=== PATIENT | male | born 1990 | race Caucasian/White ===

== ENCOUNTER 2017-02-27 17:45 | Emergency (ER) | payer MEDICAID ==
[~2017-02-27] VITALS: Ht 185.4 cm; Wt 68.0 kg
[2017-02-27 18:05] VITALS: BP 119/67
--- NOTE | 2017-02-27 18:46 | Emergency Room Report ---
History of Present Illness General Chief Complaint: Earache Source: Patient Present Illness HPI 26-year-old male presents emergency department complaining of decreased hearing in the right ear in addition to form body sensation and itching. Patient states he was seen at an urgent care who told them to place drops and is here which she only took for 2 days and gave. Patient reports tenderness denies fevers or chills. Patient states he had preceding upper respiratory symptoms such as nasal congestion for 1 week prior to onset of his symptoms. Patient denies trauma to the ear he denies Q-tip use. Denies discharge or blood. Denies CP, Palpitations, LOC, AMS, dizziness, Changes in Vision, Sensation, paresthesias, or a sudden severe headache. Allergies: Coded Allergies: No Known Allergies (Unverified , 02/27/17) Patient History Past Medical History: see triage record Past Surgical History: none Pertinent Family History: none Immunizations: UTD Reviewed Nursing Documentation: PMH: Agreed, PSxH: Agreed Nursing Documentation-PMH Past Medical History: No Stated History Review of Systems All Other Systems: negative except mentioned in HPI Physical Exam Vital Signs Date Time Temp Pulse Resp B/P Pulse Ox O2 Delivery O2 Flow Rate FiO2 02/27/17 18:02 98.1 80 15 119/67 98 Room Air Sp02 EP Interpretation: reviewed, normal General Appearance: no apparent distress, alert, GCS 15, non-toxic Head: normocephalic, atraumatic Eyes: bilateral eye PERRL, bilateral eye normal inspection ENT: hearing grossly normal, normal pharynx, no angioedema, normal voice, other Neck: full range of motion, supple/symm/no masses Respiratory: lungs clear, normal breath sounds, speaking full sentences Cardiovascular #1: regular rate, rhythm, no edema Musculoskeletal: back normal, gait/station normal, normal range of motion, non- tender Neurologic: alert, oriented x3, responsive, motor strength/tone normal, sensory intact, speech normal Psychiatric: judgement/insight normal, memory normal, mood/affect normal, no suicidal/homicidal ideation Skin: normal color, no rash, warm/dry, well hydrated Lymphatic: no adenopathy Medical Decision Making PA Attestation Dr. Dykes is my supervising Physician whom patient management has been discussed with. Diagnostic Impression: Primary Impression: Right ear impacted cerumen Additional Impression: Otitis externa of right ear Qualified Codes: H60.391 - Other infective otitis externa, right ear ER Course 26-year-old male presents emergency department complaining of decreased hearing in the right ear in addition to form body sensation and itching. Patient states he was seen at an urgent care who told them to place drops and is here which she only took for 2 days and gave. Patient reports tenderness denies fevers or chills. Patient states he had preceding upper respiratory symptoms such as nasal congestion for 1 week prior to onset of his symptoms. Patient denies trauma to the ear he denies Q-tip use. Denies discharge or blood. Ddx considered but are not limited to OM, OE, mastoiditis, TM perforation, FB Vital signs: are WNL, pt. is afebrile H&PE are most consistent with cerumen impaction and otitis externa ORDERS: none required at this time, the diagnosis is clinical -OTOSCOPY: there is moderate cerumen in the right ear canal. --- re-inspection with otoscope ( After cerumen removal with curette) : the canal is macerated in appearance with notable thick white/yellow d/c, the membrane is visualized and is opaque in color, non-bulging. ED INTERVENTIONS: -Cerumen is removed using ear curette, pt. tolerated well. pt states hearing improved moderately upon removal. -D/W pt. to follow up with ENT specialist. DISCHARGE: At this time pt. is stable for d/c to home. With otic ABX. Will provide printed patient care instructions, and any necessary prescriptions. Care plan and follow up instructions have been discussed with the patient prior to discharge. Last Vital Signs Date Time Temp Pulse Resp B/P Pulse Ox O2 Delivery O2 Flow Rate FiO2 02/27/17 18:05 15 119/67 98 Room Air 02/27/17 18:02 98.1 80 Disposition: HOME, SELF-CARE Condition: Stable Scripts Ciprofloxacin Hcl/Dexameth (CIPRODEX OTIC SUSPENSION) 7.5 Ml Drops.susp 7 DROP RIGHT EAR TWICE A DAY, #7.5 ML Prov: Elizabeth Thompson 02/27/17 Patient Instructions: Cerumen Impaction, Otitis Externa, [id number] Additional Instructions: Take medications as directed. Follow up with PCP in 3-5 days Return sooner to ED if new symptoms occur, or current symptoms become worse. - Please note that this Emergency Department Report was dictated using [employer] dental assistant technology software, occasionally this can lead to erroneous entry secondary to interpretation by the dictation equipment. Elizabeth Thompson Feb 27, 2017 18:46
[2017-02-27] MEDS ORDERED: CIPRODEX OTIC7.5 M1 RIGHT EAR (18:47)
[2017-02-27 18:52] VITALS: BP 125/71
== END 2017-02-27 18:50 | disposition home or self-care (01) ==
LOC: EMR 18:40
DX: H61.21 Impacted cerumen, right ear (principal); H60.391 Other infective otitis externa, right ear
CPT/HCPCS: 99283